=== PATIENT | female | born 1980 | race Two or more races ===

== ENCOUNTER 2023-04-22 19:23 | Emergency (ER) | payer OTHER ==
[~2023-04-22] VITALS: Ht 157.5 cm; Wt 52.2 kg
== END 2023-04-22 22:28 | disposition home or self-care (01) ==
LOC: ER 19:24
DX: R53.81 Other malaise (principal); R05.9 Cough, unspecified; Z20.822 Contact with and (suspected) exposure to COVID-19; Z88.0 Allergy status to penicillin; Z88.1 Allergy status to other antibiotic agents

== ENCOUNTER 2023-05-12 14:47 | Emergency (ER) | payer OTHER ==
[~2023-05-12] VITALS: Ht 157.5 cm; Wt 52.6 kg
[2023-05-12] MEDS ORDERED: KETOROLAC TROMETHAMINE 30 MG VIAL IM STA (16:37)
== END 2023-05-12 17:28 | disposition home or self-care (01) ==
LOC: ER 14:47
DX: M54.89 Other dorsalgia (principal); Z88.0 Allergy status to penicillin; Z88.8 Allergy status to other drugs, medicaments and biological substances